=== PATIENT | female | born 2005 | race Caucasian/White ===

== ENCOUNTER 2025-01-30 10:31 | Observation (INO) ==
--- NOTE | 2025-01-30 11:02 | Emergency Department Note ---
History of Present Illness General Chief complaint: Pelvic Pain Stated complaint: REF BY DOC, PELVIC PAIN, ABD PAIN Time Seen by Provider: 01/30/25 10:39 History of Present Illness Maximum Pain Intensity: 7 Patient is a 19-year-old female who is referred to the ED from [facility] for evaluation of right lower quadrant abdominal pain. She states her symptoms started about 5 days ago with some lower abdominal cramping, became more painful and localized in the right lower quadrant on Tuesday 3 days ago. The pain radiates into the top of her thigh, and up into the right ribs. She has tried ibuprofen and indomethacin without relief. Remote history of ovarian cysts, thought that the pain was related to this but when it was not getting any better, she went to [facility]. They did a urine and sent her to the ED. She admits to nausea without vomiting. No urinary symptoms. She has been slightly constipated. She uses a NuvaRing, had a period 2 weeks ago. No vaginal discharge. She has not been sexually active in over 6 months. No concern for STIs. Allergies Allergy/AdvReac Type Severity Reaction Status Date / Time amoxicillin Allergy Intermediate Hives Verified 01/30/25 13:41 Past Med/Surg History Problem List Acute appendicitis (Acute) Medical History Ovarian cyst Asthma Surgical History H/O wisdom tooth extraction Social History Smoking Status: Never smoker Preferred Language: Micronesian Feels Safe at Home: Yes Review of Systems A total of 10 systems reviewed and were otherwise negative Physical Exam Vital Signs Vital Signs - 24 hr 01/30/25 10:35 01/30/25 12:16 01/30/25 12:16 Temperature 36.6 C Temperature Source Temporal Artery Scan Pulse Rate 90 84 Pulse Rate [Right Finger] 114 H Respiratory Rate 18 18 Respiratory Effort / Characteristics Non-Labored Spontaneous Respiratory Depth Normal Respiratory Pattern Regular Blood Pressure 134/65 Blood Pressure [Right Arm] 108/64 Blood Pressure Mean 88 Blood Pressure Mean [Right Arm] 78 Pulse Oximetry 99 100 Oxygen Delivery Method Room Air Room Air Sepsis Recent Fever Within 48 Hours No Sepsis New/Unexplained Change in Mental Status N/A Sepsis Action Taken by Nursing No Action Required 01/30/25 13:30 01/30/25 13:43 Temperature 36.9 C Temperature Source Oral Pulse Rate Pulse Rate [Right Finger] 108 H 116 H Respiratory Rate 16 20 Respiratory Effort / Characteristics Non-Labored Spontaneous Accessory Muscle Use Non-Labored Spontaneous Respiratory Depth Normal Normal Respiratory Pattern Regular Regular Blood Pressure Blood Pressure [Right Arm] 127/78 137/72 Blood Pressure Mean Blood Pressure Mean [Right Arm] 94 93 Pulse Oximetry 98 100 Oxygen Delivery Method Room Air Room Air Sepsis Recent Fever Within 48 Hours Sepsis New/Unexplained Change in Mental Status Sepsis Action Taken by Nursing CONSTITUTIONAL: Well-appearing 19-year-old female laying on the gurney in no acute distress. EYES: Pupils equal, round, reactive to light and accommodation. EOMs intact without nystagmus. Sclera are anicteric. CARDIOVASCULAR: Regular rate and rhythm. Peripheral pulses easily palpable. RESPIRATORY: Breath sounds equal and clear to auscultation. ABDOMEN: Bowel sounds are present. The abdomen is soft, nondistended, nontender to percussion throughout. She is tender to deep palpation in the right lower quadrant without guarding or rebound. INTEGUMENTARY: No lesions or rash, normal skin turgor. LYMPH: No lymphadenopathy. Course Course The patient was seen and assessed as above. External medical records are reviewed. She presents to the emergency department for evaluation of right lower quadrant abdominal pain. IV lock was initiated. Laboratory studies were collected. CT scan of the abdomen and pelvis was ordered. Diagnostics, as interpreted by me: Laboratory studies: No leukocytosis, anemia, electrolyte imbalance requiring repletion, GURVIDNER or transaminitis. test negative. Urine microscopy clear. Imaging studies: CT scan of the abdomen and pelvis with IV contrast notes dilated appendix measuring 1 cm in caliber with trace periappendiceal inflammation and mucosal wall thickening with enhancement, concerning for acute appendicitis. No free air or abscess. Laboratory studies and CT scan findings reviewed with the patient. Consultation placed with Fabby Ott PA-C with general surgery. Patient will go to the OR when available. Please refer to surgical H&P for further information. Differential diagnosis: UTI, pyelonephritis, kidney stone, appendicitis, ovarian cyst, ovarian torsion, PID, TOA, , ectopic , among others. Administered Medications Fentanyl Citrate (Fentanyl Citrate Pf 100 Mcg/2 Ml Vial) 25 mcg IV Q5M PRN PRN Reason: PACU Use Only-Pain Stop: 01/30/25 22:01 Last Admin: 01/30/25 15:45 Dose: 25 mcg Documented By: DONIS Clindamycin Phosphate (Cleocin/D5w) 900 mg in 50 mls @ 100 mls/hr IV PREOP CLEMENTINA Stop: 01/31/25 05:59 Last Admin: 01/30/25 14:07 Dose: 100 mls/hr Documented By: TAQUERIA Lactated Ringer's (Lr) 1,000 mls @ 65 mls/hr IV .[id number] CLEMENTINA Stop: 02/02/25 14:14 Last Infusion: 01/30/25 14:05 Dose: Infused Documented By: Admin: 01/30/25 13:45 Dose: 15 mls/hr Documented By: ASH Discontinued Medications Bupivacaine HCl/Epinephrine Bitart (Bupivacaine/Epinephrine 0.5% Mpf 1:200,000 30 Ml Vial) Confirm Administered Dose 30 ml .ROUTE .STK-MED ONE Stop: 01/30/25 13:41 Last Admin: 01/30/25 14:31 Dose: 20 ml Documented By: NEDRA Ioversol (Optiray 320 100ml) 93 ml IV ONCE ONE Stop: 01/30/25 11:35 Last Admin: 01/30/25 11:34 Dose: 93 ml Documented By: PRINCESS Medical Decision Making Differential Diagnosis See ED course. Medical Records Attestation: I reviewed the patient's medical records. Home Medications Current Medication List: was personally reviewed by me Laboratory Data Attestation: I reviewed the patient's lab results. 01/30/25 10:42 01/30/25 10:42 Lab Results 01/30/25 01/30/25 01/30/25 Range/Units 10:42 11:20 11:21 WBC 6.50 (4.8-10.8) K/ul RBC 4.52 (4.20-5.40) M/uL Hgb 13.2 (12.0-16.0) g/dL POC Hgb 12.6 (12.0-16.0) g/dl Hct 37.9 (37.0-47.0) % POC Hct 37 (37-47) % MCV 83.8 (80.0-100.0) fL MCH 29.2 (25.0-34.0) pg MCHC 34.8 (32.0-36.0) g/dL RDW Std Deviation 37.0 (36.4-46.3) fL RDW Coeff of Crystal 12.2 (11.5-14.5) % Plt Count 235 (130-400) K/uL MPV 9.4 (9.4-12.4) fL Immature Gran % (Auto) 0.5 % Neut % (Auto) 66.2 % Lymph % (Auto) 25.2 % [place] % (Auto) 6.0 % Eos % (Auto) 1.8 % Baso % (Auto) 0.3 % Neut # (Auto) 4.30 (1.40-6.50) K/uL Lymph # (Auto) 1.64 (1.20-3.40) K/uL [place] # (Auto) 0.39 (0.11-0.59) K/uL Eos # (Auto) 0.12 (0.00-0.50) K/uL Baso # (Auto) 0.02 (0.00-0.20) K/uL Immature Gran # (Auto) 0.03 (0.01-0.20) K/uL POC Sodium 140 (135-144) mmol/L Sodium 138 (136-145) mmol/L POC Potassium 3.6 (3.3-5.0) mmol/L Potassium 3.4 L (3.5-5.1) mmol/L POC Chloride 108 (101-112) mmol/L Chloride 109 H (98-107) mmol/L Carbon Dioxide 18 L (21-32) mmol/L POC Total CO2 18 L (24-31) mmol/L Anion Gap 11 (3-11) POC Anion Gap 19.0 (16-25) mmol/L POC BUN 9 (7-18) mg/dl BUN 10 (6-23) mg/dl Creatinine 0.81 (0.6-1.2) mg/dl POC Creatinine 0.8 (0.6-1.3) mg/dl Est Cr Clr Drug Dosing 86.7 ml/min eGFR 105.85 BUN/Creatinine Ratio 12.3 (10-20) Glucose 112 H (70-99(Fasting)) mg/dl POC Glucose (other) 109 H (70-99) mg/dl Calcium 9.6 (8.6-10.3) mg/dl POC Ioniz Calcium Tanja 1.20 (1.12-1.32) mmol/l Total Bilirubin 0.6 (0.2-1.0) mg/dl AST 19 (13-39) U/L ALT 20 (7-52) U/L Alkaline Phosphatase 56 (34-104) U/L Total Protein 7.1 (6.0-8.3) gm/dl Albumin 4.1 (3.4-5.0) gm/dl Globulin 3.0 (2.5-4.0) gm/dl Albumin/Globulin Ratio 1.4 (0.9-2) HCG, Qual Negative (Negative) Urine Color Yellow Urine Appearance Clear (Clear) Urine pH 7.0 (4.5-7.5) Ur Specific [place] 1.004 (1.000-1.030) Urine Protein Negative (Negative) Urine Glucose (UA) Negative (Negative) Urine Ketones Negative (Negative) Urine Blood Negative (Negative) Urine Nitrite Negative (Negative) Urine Bilirubin Negative (Negative) Urine Urobilinogen Negative (Negative) Ur Leukocyte Esterase Negative (Negative) Urine Comment Imaging Data Attestation: I personally reviewed and interpreted this imaging study as follows: Radiologist's Impression: Abdomen/Pelvis CT 01/30/25 10:56 CT SCAN OF THE ABDOMEN AND PELVIS WITH IV CONTRAST CLINICAL HISTORY: Abdominal and pelvic pain. COMPARISON STUDY: None. TECHNIQUE: Following the IV administration of 93 cc of Optiray 320, CT scan of the abdomen and pelvis is performed from the lung bases to the proximal femora. Images are reviewed in the axial, sagittal, and coronal planes. IV contrast was administered without complication. A dose lowering technique was utilized adhering to the principles of ALARA. CT DOSE: 471.22 mGy.cm FINDINGS: Visualized lung bases are unremarkable. No pneumatosis, free air or portal venous gas is present. Liver, spleen, adrenal glands, kidneys and pancreas are unremarkable with the exception of a 2 mm left lower pole renal calculus. There is no hydronephrosis. There is no biliary ductal dilatation. There is no evidence for a bowel obstruction. There is a moderate to large amount stool within the rectum. The appendix is mildly dilated, measuring 1 cm in caliber. There is trace periappendiceal inflammation. Mucosal wall is thickened with increased enhancement. There is no free air. There is no abscess. Contraceptive device is in place. IMPRESSION: 1. Findings consistent with acute appendicitis. Mild inflammation. No free air. No abscess. 2. Moderate to large amount of stool within the rectum. ACT 112: Negative or not required by law. Electronically signed by: Efren Valderrama M.D. 01/30/2025 12:00 PM MDM Narrative See ED course. Impression & Plan Acute appendicitis Discharge Plan Visit Data Chief Complaint: Pelvic Pain Stated Complaint: REF BY DOC, PELVIC PAIN, ABD PAIN ED Provider: Montrell Gold ED Midlevel Provider: Vidhya Price Discharge Problem: Acute appendicitis Patient Disposition: Being Evaluated by Surgeon Condition: Good Discharge Instructions Interventions: ED Discharge Assessment Last Done: 01/30/25 13:31 Discharge Problem: Acute appendicitis Qualifiers: Acute appendicitis type: with localized peritonitis Appendicitis gangrene presence: without gangrene Appendicitis perforation presence: without perforation Appendicitis abscess presence: without abscess Qualified Code(s): K 35.30 - Acute appendicitis with localized peritonitis, without perforation or gangrene
[2025-01-30 11:24] LABS: Hematocrit (blood only) 37.9 % (37.0-47.0); Hemoglobin 13.2 g/dL (12.0-16.0); Immature Granulocytes # (auto) 0.03 K/uL (0.01-0.20); Immature Granulocytes % (auto) 0.5 %; Mean Corpuscular Hemoglobin 29.2 pg (25.0-34.0); Mean Corpuscular Volume 83.8 fL (80.0-100.0); Platelet Count 235 K/uL (130-400); RDW Standard Deviation 37.0 fL (36.4-46.3); Red Blood Count 4.52 M/uL (4.20-5.40); White Blood Count 6.50 K/ul (4.8-10.8)
[2025-01-30 11:31] LABS: Appearance Urine Clear (Clear); Glucose Urine UA Negative (Negative)
[2025-01-30] MEDS: OPTIRAY 320 100ml IV ONE (11:34)
[2025-01-30 11:38] LABS: Pregnancy Test, Serum Negative (Negative)
[2025-01-30 12:00] LABS: Albumin Level 4.1 gm/dl (3.4-5.0); Anion Gap 11.0 (3-11); Bilirubin,Total 0.6 mg/dl (0.2-1.0); Calcium 9.6 mg/dl (8.6-10.3); Carbon Dioxide 18.0 mmol/L (21-32); Chloride 109.0 mmol/L (98-107); Potassium 3.4 mmol/L (3.5-5.1); Sodium 138.0 mmol/L (136-145)
--- NOTE | 2025-01-30 12:02 | CT Scan Report ---
CT SCAN OF THE ABDOMEN AND PELVIS WITH IV CONTRAST CLINICAL HISTORY: Abdominal and pelvic pain. COMPARISON STUDY: None. TECHNIQUE: Following the IV administration of 93 cc of Optiray 320, CT scan of the abdomen and pelvi s is performed from the lung bases to the proximal femora. Images are reviewed in the axial, sagittal , and coronal planes. IV contrast was administered without complication. A dose lowering technique wa s utilized adhering to the principles of ALARA. CT DOSE: 471.22 mGy.cm FINDINGS: Visualized lung bases are unremarkable. No pneumatosis, free air or portal venous gas is pr esent. Liver, spleen, adrenal glands, kidneys and pancreas are unremarkable with the exception of a 2 mm left lower pole renal calculus. There is no hydronephrosis. There is no biliary ductal dilatation . There is no evidence for a bowel obstruction. There is a moderate to large amount stool within the rectum. The appendix is mildly dilated, measuring 1 cm in caliber. There is trace periappendiceal inf lammation. Mucosal wall is thickened with increased enhancement. There is no free air. There is no ab scess. Contraceptive device is in place. IMPRESSION: 1. Findings consistent with acute appendicitis. Mild inflammation. No free air. No abscess. 2. Moderate to large amount of stool within the rectum. ACT 112: Negative or not required by law. Electronically signed by: Efren Valderrama M.D. 01/30/2025 12:00 PM
[2025-01-30 12:06] LABS: Alanine Aminotransferase 20.0 U/L (7-52); Albumin Globulin Ratio 1.4 (0.9-2); Alkaline Phosphatase 56.0 U/L (34-104); Blood Urea Nitrogen 10.0 mg/dl (6-23); Creatinine Clr Calc Pharmacy 86.7 ml/min; Globulin 3.0 gm/dl (2.5-4.0); Glucose 112.0 mg/dl (70-99(Fasting)); Total Protein 7.1 gm/dl (6.0-8.3)
[2025-01-30] MEDS ORDERED: PROPOFOL IV EMULSION 10 MG/ML 20 ML VIAL IV ONE (13:28)
[2025-01-30] MEDS ORDERED: MIDAZOLAM HCL 1 MG/ML 2ML VIAL ONE (13:28)
[2025-01-30] MEDS ORDERED: ROCURONIUM BROMIDE 10 MG/ML 5 ML VIAL IV ONE (13:28)
[2025-01-30] MEDS ORDERED: DEXAMETHASONE SOD INJ 4 MG/ML VIAL ONE (13:28)
[2025-01-30] MEDS ORDERED: LIDOCAINE 2% 2 ML VIAL/AMP(20MG/ML) INFIL ONE (13:28)
[2025-01-30] MEDS ORDERED: ONDANSETRON INJ 2 MG/ML 2 ML VIAL ONE (13:28)
--- NOTE | 2025-01-30 13:29 | History & Physical Report ---
Date of Service January 30, 2025 Assessment & Plan (1) Acute appendicitis: Plan: 19 yo otherwise healthy female with uncomplicated appendicitis on CT scan. 5 days of pain with 3 days of increase moderate to severe pain. Discussed ct scan findings and examination is consistent with acute appendicitis. She did have some crackers and small amount of juice at 1030 am . Given dilated appendix at 1.0 m with 3-5 days of pain, I feel appropriate to proceed with surgery now for laparoscopic appendectomy even with some oral intake given increased risk of perforation after 48 hours of pain. Keep npo.. IV antibiotics preop. Discussed with patient and father (on phone) procedure , risks, expected recovery and restrictions , as well as risk of aspiration with anesthesia and informed consent obtained. Discussed with Dr. de la cruz who agrees with above. 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 States she thought it was an ovarian cyst but then pain increased in severity on Tuesday. Associated nausea no vomiting. No fevers or chills. Sweats with severe pain. States she has been urinating without difficulty. No chest pain or shortness of breath. No dysuria. No blood in stools. No prior abdominal surgery history. Currently rating pain 7/10. Took Ibuprofen this morning but has not had anything since. No nausea or vomiting since being in ED. Had two small crackers and a small cup of juice at 1030 at [facility]. Allergies Allergy/AdvReac Type Severity Reaction Status Date / Time amoxicillin Allergy Intermediate Hives Verified 01/30/25 13:41 Past Med/Surg History Problem List Acute appendicitis (Acute) Medical History Ovarian cyst Asthma Surgical History H/O wisdom tooth extraction Social History Smoking Status: Never smoker Preferred Language: Burkinan Feels Safe at Home: Yes Review of Systems Review of Systems: All systems reviewed & are unremarkable except as noted in HPI & below Physical Exam Constitutional: WD/WN, vitals as above cooperative and comfortable; no acute distress and not ill appearing Respiratory: normal respiratory effort, lungs clear to auscultation Cardiovascular: RRR, no murmur, no edema Gastrointestinal (Abdomen): Inspection/Auscultation: abdomen normal to inspection; abdomen not distended Percussion/Palpation: + abdomen tender (RLQ with deep palpation), + guarding (Voluntary guarding RLQ on palpation) and abdomen soft; abdomen not rigid and abdomen not firm + Mcburney's point, no peritonitis Skin: no rashes, warm and dry Psychiatric: Orientation: alert and oriented x 3 Results & Data Results & Data Vital Signs (Past 12 Hours) Vital Signs Temp Pulse Pulse Resp BP BP Pulse Ox 01/30/25 12:16 84 01/30/25 12:16 114 H 18 108/64 100 01/30/25 10:35 36.6 C 90 18 134/65 99 O2 Del Method 01/30/25 12:16 01/30/25 12:16 Room Air 01/30/25 10:35 Room Air Laboratory Results 01/30/25 01/30/25 01/30/25 Range/Units 11:21 11:20 10:42 WBC 6.50 (4.8-10.8) K/ul RBC 4.52 (4.20-5.40) M/uL Hgb 13.2 (12.0-16.0) g/dL POC Hgb 12.6 (12.0-16.0) g/dl Hct 37.9 (37.0-47.0) % POC Hct 37 (37-47) % MCV 83.8 (80.0-100.0) fL MCH 29.2 (25.0-34.0) pg MCHC 34.8 (32.0-36.0) g/dL RDW Std Deviation 37.0 (36.4-46.3) fL RDW Coeff of Crystal 12.2 (11.5-14.5) % Plt Count 235 (130-400) K/uL MPV 9.4 (9.4-12.4) fL Immature Gran % (Auto) 0.5 % Neut % (Auto) 66.2 % Lymph % (Auto) 25.2 % [place] % (Auto) 6.0 % Eos % (Auto) 1.8 % Baso % (Auto) 0.3 % Neut # (Auto) 4.30 (1.40-6.50) K/uL Lymph # (Auto) 1.64 (1.20-3.40) K/uL [place] # (Auto) 0.39 (0.11-0.59) K/uL Eos # (Auto) 0.12 (0.00-0.50) K/uL Baso # (Auto) 0.02 (0.00-0.20) K/uL Immature Gran # (Auto) 0.03 (0.01-0.20) K/uL POC Sodium 140 (135-144) mmol/L Sodium 138 (136-145) mmol/L POC Potassium 3.6 (3.3-5.0) mmol/L Potassium 3.4 L (3.5-5.1) mmol/L POC Chloride 108 (101-112) mmol/L Chloride 109 H (98-107) mmol/L Carbon Dioxide 18 L (21-32) mmol/L POC Total CO2 18 L (24-31) mmol/L Anion Gap 11 (3-11) POC Anion Gap 19.0 (16-25) mmol/L POC BUN 9 (7-18) mg/dl BUN 10 (6-23) mg/dl Creatinine 0.81 (0.6-1.2) mg/dl POC Creatinine 0.8 (0.6-1.3) mg/dl Est Cr Clr Drug Dosing 86.7 ml/min eGFR 105.85 BUN/Creatinine Ratio 12.3 (10-20) Glucose 112 H (70-99(Fasting)) mg/dl POC Glucose (other) 109 H (70-99) mg/dl Calcium 9.6 (8.6-10.3) mg/dl POC Ioniz Calcium [place]ja 1.20 (1.12-1.32) mmol/l Total Bilirubin 0.6 (0.2-1.0) mg/dl AST 19 (13-39) U/L ALT 20 (7-52) U/L Alkaline Phosphatase 56 (34-104) U/L Total Protein 7.1 (6.0-8.3) gm/dl Albumin 4.1 (3.4-5.0) gm/dl Globulin 3.0 (2.5-4.0) gm/dl Albumin/Globulin Ratio 1.4 (0.9-2) HCG, Qual Negative (Negative) Urine Color Yellow Urine Appearance Clear (Clear) Urine pH 7.0 (4.5-7.5) Ur Specific [place] 1.004 (1.000-1.030) Urine Protein Negative (Negative) Urine Glucose (UA) Negative (Negative) Urine Ketones Negative (Negative) Urine Blood Negative (Negative) Urine Nitrite Negative (Negative) Urine Bilirubin Negative (Negative) Urine Urobilinogen Negative (Negative) Ur Leukocyte Esterase Negative (Negative) Urine Comment Diagnostic Findings CT SCAN OF THE ABDOMEN AND PELVIS WITH IV CONTRAST CLINICAL HISTORY: Abdominal and pelvic pain. COMPARISON STUDY: None. TECHNIQUE: Following the IV administration of 93 cc of Optiray 320, CT scan of the abdomen and pelvis is performed from the lung bases to the proximal femora. Images are reviewed in the axial, sagittal, and coronal planes. IV contrast was administered without complication. A dose lowering technique was utilized adhering to the principles of ALARA. CT DOSE: 471.22 mGy.cm FINDINGS: Visualized lung bases are unremarkable. No pneumatosis, free air or portal venous gas is present. Liver, spleen, adrenal glands, kidneys and pancreas are unremarkable with the exception of a 2 mm left lower pole renal calculus. There is no hydronephrosis. There is no biliary ductal dilatation. There is no evidence for a bowel obstruction. There is a moderate to large amount stool within the rectum. The appendix is mildly dilated, measuring 1 cm in caliber. There is trace periappendiceal inflammation. Mucosal wall is thickened with increased enhancement. There is no free air. There is no abscess. Contraceptive device is in place. IMPRESSION: 1. Findings consistent with acute appendicitis. Mild inflammation. No free air. No abscess. 2. Moderate to large amount of stool within the rectum. ACT 112: Negative or not required by law. Electronically signed by: Efren Valderrama M.D. I personally reviewed ct scan images and concur with above findings. Code Status & VTE Plan VTE Prophylaxis Plan VTE Prophylaxis will be ordered: Yes (1) Acute appendicitis Acute appendicitis type: with localized peritonitis Appendicitis abscess presence: without abscess Appendicitis gangrene presence: without gangrene Appendicitis perforation presence: without perforation Qualified Code(s): K35.30 - Acute appendicitis with localized peritonitis, without perforation or gangrene
[2025-01-30] MEDS ORDERED: ACETAMINOPHEN 1000 MG/100 ML IV IV ONE (13:30)
[2025-01-30] MEDS ORDERED: ONDANSETRON INJ 2 MG/ML 2 ML VIAL IV PRN ×4 (13:43→14:59)
[2025-01-30] MEDS ORDERED: ATROPINE SULFATE 0.1 MG/ML 10ML SYR IV PRN ×2 (13:43→14:01)
[2025-01-30] MEDS: LACTATED RINGER'S 1,000 ML IV SCH (13:45)
--- NOTE | 2025-01-30 14:00 | Anesthesiology Consultation ---
Date of Service January 30, 2025 Assessment & Plan Chart Review Chart Review: Acceptable Risk for Surgery Consults Requested none ASA [id number] Proposed Anesthesia Anesthesia Type: General Additional Notes pt last ate crackers and apple juice at 10:30AM. Surgical team assesses that this appendix warrants violating NPO timing. Discussed increased risk of aspiration with patient who agrees. History Surgery Operation Date: 01/30/25 10:30 Proposed Procedures p Laparoscopic Appendectomy - Jacobo Mittal MD Height/Weight Height: 5 ft Weight: 56.7 kg Allergies Allergy/AdvReac Type Severity Reaction Status Date / Time amoxicillin Allergy Intermediate Hives Verified 01/30/25 13:41 NPO Date Last Intake of Fluids: 01/30/25 Time Last Intake of Fluids: 10:30 Last Intake of Fluids Comment: 4oz juice Date Last Intake of Solids: 01/30/25 Time Last Intake of Solids: 10:30 Last Intake of Solids Comment: 2 crackers Past Medical History Medical History Ovarian cyst Asthma Past Surgical History Surgical History H/O wisdom tooth extraction Social History Smoking Status: Never smoker Physical Exam Vital Signs Last Vital Signs Temp 36.9 C 01/30/25 13:43 Pulse 116 H 01/30/25 13:43 Resp 20 01/30/25 13:43 BP 137/72 01/30/25 13:43 Pulse Ox 100 01/30/25 13:43 O2 Del Method Room Air 01/30/25 13:43 Constitutional no acute distress ENMT Thyromental Distance: > or= 3.5 Finger Breadths Mallampati Class: I Neck normal visual inspection Respiratory normal respiratory effort, lungs clear to auscultation normal respiratory effort Cardiovascular Rate/Rhythm: regular rate and regular rhythm Musculoskeletal Spine: normal cervical ROM Psychiatric Orientation: alert and oriented x 3 Testing Laboratory Results 01/30/25 10:42 01/30/25 10:42 Urine Color Yellow 01/30/25 11:21 Urine Appearance Clear (Clear) 01/30/25 11:21 Urine pH 7.0 (4.5-7.5) 01/30/25 11:21 Ur Specific [place] 1.004 (1.000-1.030) 01/30/25 11:21 Urine Protein Negative (Negative) 01/30/25 11:21 Urine Glucose (UA) Negative (Negative) 01/30/25 11:21 Urine Ketones Negative (Negative) 01/30/25 11:21 Urine Nitrite Negative (Negative) 01/30/25 11:21 Ur Leukocyte Esterase Negative (Negative) 01/30/25 11:21 01/30/25 11:20 POC Glucose (other) 109 H
[2025-01-30] MEDS: CLINDAMYCIN/D5W 900 MG/50 ML BAG IV SCH (14:07)
[2025-01-30] MEDS: BUPIVACAINE/EPINEPHRINE 0.5% MPF 1:200,000 30 ML VIAL ONE (14:31)
[2025-01-30] MEDS ORDERED: SUGAMMADEX SODIUM 200 MG/2 ML VIAL IV ONE (14:40)
[2025-01-30] MEDS ORDERED: KETOROLAC 30 MG/ML VIAL ONE (14:44)
[2025-01-30] MEDS ORDERED: MoRPHine SULFATE 4 MG/ML 1 ML CARP\\VIAL IV PRN (14:59)
[2025-01-30] MEDS ORDERED: ACETAMINOPHEN 325 MG TAB PO PRN (14:59)
--- NOTE | 2025-01-30 14:59 | Operative Report ---
Post Operative Report Pre & Post Diagnosis Operation Date: 01/30/25 10:30 Acute appendicitis I identified the patient and participated in the time-out.: Yes Procedure Operation Date: 01/30/25 10:30 Laparoscopic appendectomy Surgeon Jacobo Mittal MD [employer] none Estimated Blood Loss 11 Findings Consistent with Post-Op Diagnosis Specimens Appendix to pathology Drains none Anesthesia Type General Complications none Disposition Accompanied Patient To Recovery: No Disposition: Recovery Room Indications This is a 19-year-old female who came to the ED with complaints of abdominal pain in the last few days. She had a CT scan which revealed early acute appendicitis. She had peritoneal findings on exam and therefore we recommended laparoscopic appendectomy. She understands all risks and wishes to proceed. Description of Procedure The patient was taken to the OR and underwent excellent general anesthesia. Their abdomen was prepped and draped in normal sterile fashion. A transverse supraumbilical incision was made, towel clamps were used to create tension on the abdominal wall and a Veress needle was inserted with tension on the abdominal wall. Good pneumoperitoneum was achieved to about 15 mmHg pressure. A 5mm port was then placed in the supraumbilical position, inserted with visualization gently into the peritoneal cavity. Once this was done, a visualized 12 mm left lower quadrant port and a 5mm suprapubic port were placed in normal fashion. Patient was then placed in head down and rolled to the left. A good diagnostic lap was performed. They had obvious acute appendicitis. A grasper was then was then used to grasp the tip of the appendix. The mesoappendix was splayed open and a harmonic scalpel was used to take down the mesoappendix. The base of the appendix was identified and an Endo SOHAIL stapler was used to transect the appendix at its base. A staple line bleeder was controlled with an endoclip. The appendix was removed through the left lower quadrant port. The appendix was sent for pathologic evaluation. The pneumoperitoneum was re-established after the 12 mm port was replaced. Saline was then used to irrigate the abdomen. There was no active bleeding nor any other abnormalities noted in the abdomen. The patient was then placed back in neutral position, the ports were removed and the pneumoperitoneum decompressed. The 12mm port fascia was then closed using a 0 Vicryl. The skin was then anesthetized with 0.5% Marcaine with epinephrine local. Interrupted Vicryl is used to close the skin. Dermabond was used to reinforce the incisions. The patient tolerated procedure without complications was sent to the postop recovery period of observation. They will be sent to the floor for the rest of their care. I attest to the content of the Intraoperative Record and any orders documented therein. Any exceptions are noted below.
--- NOTE | 2025-01-30 15:47 | Anesthesiology Progress Note ---
Date of Service January 30, 2025 Anesthesia Post Procedure Vital Signs Vital Signs: Temp Pulse Pulse Pulse Resp BP BP 01/30/25 15:30 82 12 121/67 01/30/25 15:20 120 H 15 113/75 01/30/25 15:10 133 H 16 143/75 H 01/30/25 15:03 36.4 C L 92 H 12 118/57 L 01/30/25 13:43 36.9 C 116 H 20 137/72 01/30/25 13:30 108 H 16 127/78 01/30/25 12:16 84 01/30/25 12:16 114 H 18 108/64 01/30/25 10:35 36.6 C 90 18 134/65 Pulse Ox O2 Del Method O2 Flow Rate 01/30/25 15:30 100 Room Air 01/30/25 15:20 100 Room Air 01/30/25 15:10 100 Oxymask 6 01/30/25 15:03 99 Oxymask 6 01/30/25 13:43 100 Room Air 01/30/25 13:30 98 Room Air 01/30/25 12:16 01/30/25 12:16 100 Room Air 01/30/25 10:35 99 Room Air Pain Intensity Abdomen: Pain Intensity: 6 Transfer of Care Handoff Completed per policy Notes Mental Status: alert / awake / arousable Patient Amnestic to Procedure: Yes Nausea / Vomiting: adequately controlled Pain: adequately controlled Airway Patency, RR, SpO2: stable & adequate BP & HR: stable & adequate Hydration State: stable & adequate Anesthetic Complications: no major complications apparent
[2025-01-30 16:33] VITALS: RESP 16
[2025-01-30] MEDS: CLINDAMYCIN 900 MG/D5W 50 ML BAG IV ONE (17:04)
[2025-01-30 17:50] VITALS: BP 113/74; PULSE 95; TEMP 98.8; O2SAT 98
== END 2025-01-30 18:49 | disposition home or self-care (01) ==
LOC: ED 10:31 → OR 13:36 → 3W 13:36